=== PATIENT | male | born 1985 | race Caucasian/White ===

== ENCOUNTER 2017-08-13 23:48 | Emergency (ER) | payer OTHER ==
[2017-08-13 23:57] VITALS: TEMP 98.4
[2017-08-14] MEDS ORDERED: NITROGLYCERIN OINT 1 INCH/GM PACKET TOPICAL STA (00:10)
[2017-08-14] MEDS ORDERED: SODIUM CHLORIDE 0.9% 1,000 ML IV STA (00:10)
[2017-08-14] MEDS ORDERED: ASPIRIN 81 MG PO STA (00:10)
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
[2017-08-14 00:41] LABS: Glucose,Whole Blood 89 mg/dL (75-99)
[2017-08-14 00:44] LABS: Basophils # (A) 0.1 k/uL (0-0.2); Basophils % (A) 1 %; Eosinophils # (A) 0.4 k/uL (0-0.7); Eosinophils % (A) 3 %; HCT 42.1 % (39.0-53.0); HGB 15.1 gm/dL (13.0-17.5); Lymphocytes # (A) 3.5 k/uL (1.0-4.8); Lymphocytes % (A) 33 %; MCHC 35.9 g/dL (31.0-37.0); MCV 83.5 fL (80.0-100.0); Mean Platelet Volume 7.5; Monocytes # (A) 0.4 k/uL (0-1.0); Monocytes % (A) 4 %; Neutrophils # (A) 6.1 k/uL (1.3-7.7); Neutrophils % (A) 58 %; Platelet Count 182 k/uL (150-450); RBC 5.04 m/uL (4.30-5.90); RDW 12.5 % (11.5-15.5); WBC 10.5 k/uL (3.8-10.6)
[2017-08-14 00:53] LABS: D-Dimer 0.31 mg/L FEU (<0.60)
[2017-08-14 00:57] LABS: ALT 50 U/L (21-72); AST 32 U/L (17-59); Albumin 4.3 g/dL (3.5-5.0); Alkaline Phosphatase 34 U/L (38-126); Anion Gap 10 mmol/L; Blood Urea Nitrogen 12 mg/dL (9-20); Calcium 9.7 mg/dL (8.4-10.2); Carbon Dioxide 28 mmol/L (22-30); Chloride 104 mmol/L (98-107); Glucose 84 mg/dL (74-99); INR 1.1 (<1.2); Magnesium 1.9 mg/dL (1.6-2.3); Partial Thromboplastin Time 23.6 sec (22.0-30.0); Potassium 3.4 mmol/L (3.5-5.1); Sodium 142 mmol/L (137-145); Total Bilirubin 0.6 mg/dL (0.2-1.3)
--- NOTE | 2017-08-14 00:57 | XR ---
EXAMINATION TYPE: XR chest 2V DATE OF EXAM: 08/14/2017 COMPARISON: 09/25/2009 HISTORY: Chest pain TECHNIQUE: Frontal and lateral views of the chest are obtained. FINDINGS: Heart and mediastinum are normal. Lungs are clear. Diaphragm is normal. Bony thorax appear s normal. There are chest leads. IMPRESSION: Normal chest. No change.
[2017-08-14 01:05] LABS: Creatine Kinase 320 U/L (55-170)
[2017-08-14] MEDS ORDERED: SODIUM CHLORIDE 0.9% 1,000 ML IV ONE (01:15)
[2017-08-14 01:17] VITALS: RESP 16
[2017-08-14 01:17] LABS: Creatine Kinase MB 1.3 ng/mL (0.0-2.4); Troponin I <0.012 ng/mL (0.000-0.034)
--- NOTE | 2017-08-14 01:20 | XR ---
EXAMINATION TYPE: XR lumbar spine with bend/flex DATE OF EXAM: 08/14/2017 COMPARISON: NONE HISTORY: Back pain TECHNIQUE: 5 views FINDINGS: Vertebra have normal spacing and alignment. Posterior elements are intact. Sacroiliac joint s appear normal. IMPRESSION: Normal lumbar spine exam.
[2017-08-14 01:42] VITALS: BP 110/71; PULSE 80
== END 2017-08-14 01:42 | disposition home or self-care (01) ==
LOC: EC 23:48
DX: R07.9 Chest pain, unspecified (principal); R42 Dizziness and giddiness; H66.90 Otitis media, unspecified, unspecified ear; F17.200 Nicotine dependence, unspecified, uncomplicated
CPT/HCPCS: 36415; 71046; 72114; 80053; 82550; 82553; 83735; 84484; 85025; 85379; 85610; 85730; 93005; 96360; 99285

== ENCOUNTER 2019-03-29 08:15 | Emergency (ER) | payer BC ==
[2019-03-29] MEDS ORDERED: MORPHINE SULFATE 4 MG/ML SYRINGE IVP STA (08:30)
[2019-03-29] MEDS ORDERED: SODIUM CHLORIDE 0.9% 1,000 ML IV ONE (08:30)
[2019-03-29] MEDS ORDERED: ONDANSETRON 4 MG/2 ML VIAL IVP STA (08:30)
[2019-03-29] MEDS ORDERED: KETOROLAC 30 MG/ML 1 ML VIAL IVP STA (08:33)
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
[2019-03-29 08:51] LABS: Basophils # (A) 0.1 k/uL (0-0.2); Basophils % (A) 1 %; Eosinophils # (A) 0.3 k/uL (0-0.7); Eosinophils % (A) 2 %; HCT 46.2 % (39.0-53.0); Lymphocytes # (A) 3.1 k/uL (1.0-4.8); Lymphocytes % (A) 28 %; MCH 29.9 pg (25.0-35.0); MCHC 34.7 g/dL (31.0-37.0); MCV 86.1 fL (80.0-100.0); Mean Platelet Volume 6.3; Monocytes # (A) 0.4 k/uL (0-1.0); Monocytes % (A) 3 %; Neutrophils # (A) 6.9 k/uL (1.3-7.7); Neutrophils % (A) 64 %; Platelet Count 195 k/uL (150-450); RBC 5.36 m/uL (4.30-5.90); RDW 12.5 % (11.5-15.5); WBC 10.8 k/uL (3.8-10.6)
[2019-03-29 09:00] LABS: ALT 35 U/L (21-72); AST 25 U/L (17-59); African American GFR (CKD) >90 (>60 ml/min/1.73 sqM); Albumin 4.6 g/dL (3.5-5.0); Alkaline Phosphatase 37 U/L (38-126); Anion Gap 11 mmol/L; Blood Urea Nitrogen 12 mg/dL (9-20); Carbon Dioxide 24 mmol/L (22-30); Chloride 107 mmol/L (98-107); Glucose 105 mg/dL (74-99); Potassium 3.9 mmol/L (3.5-5.1); Sodium 142 mmol/L (137-145); Total Bilirubin 0.8 mg/dL (0.2-1.3); Total Protein 7.8 g/dL (6.3-8.2)
[2019-03-29] MEDS ORDERED: PIPERACILLIN-TAZOBACTAM 3.375 GM in SODIUM CHLORIDE 0.9% 100 ML IVPB STA (09:17)
--- NOTE | 2019-03-29 09:46 | CT ---
EXAMINATION TYPE: CT abdomen pelvis w con DATE OF EXAM: 03/29/2019 COMPARISON: NONE HISTORY: 33-year-old male Right Flank Pain TECHNIQUE: Contiguous axial scanning of the abdomen and pelvis following administration of 100 ml Iso yefri 300 IV contrast. Delayed images were not acquired as the patient threw up. CT DLP: 598.2 mGycm Automated exposure control for dose reduction was used. FINDINGS: Heart normal size without pericardial effusion. Minimal dependent atelectasis. Lung bases otherwise c lear. No focal liver lesion or biliary ductal dilatation. Portal venous system is patent. Gallbladder, adrenal glands, spleen with anterior splenule, and pancreas appear within normal limits. Some mild hypodensity along the upper pole of the lateral right kidney may relate to motion artifact given the appearance on coronal series. There is mild right-sided pelvocaliectasis with a 3 mm calcul us within the distal right ureter, axial image 78. Subcentimeter hypodensity medial left kidney small for accurate CT characterization, likely cyst. No dilated small bowel, free fluid, or free air. No mesenteric or retroperitoneal lymphadenopathy. While the appendix is not discretely visualized, no secondary findings of acute appendicitis are iden tified in the right lower quadrant. Some prominent right lower quadrant mesenteric lymph nodes measuring up to 8 mm. Moderate stool right side of the colon. No pericolonic inflammatory change. Bladder under distended. Prostate gland measures 4.5 cm wide. Pelvic platelets. No abnormal fluid col lection in the pelvis or pelvic lymphadenopathy seen. Bones: No osseous destructive process. IMPRESSION: 1. A 3 MM CALCULUS IN THE DISTAL RIGHT URETER WITH PELVOCALIECTASIS SUGGESTING MILD OBSTRUCTIVE UROPA THY. 2. SUBTLE FOCAL HYPODENSITY IN THE LATERAL UPPER POLE OF THE RIGHT KIDNEY. THE CORONAL SERIES SHOWS M OTION IN THIS REGION. ARTIFACT IS SUSPECTED RATHER THAN A FOCAL AREA OF POLYNEPHRITIS. CLINICALLY COR RELATE. 3. A FEW NONSPECIFIC, BORDERLINE ENLARGED 8 MM RIGHT LOWER QUADRANT MESENTERIC LYMPH NODES LIKELY VICK CTIVE.
--- NOTE | 2019-03-29 10:09 | XR ---
EXAMINATION TYPE: XR KUB DATE OF EXAM: 03/29/2019 COMPARISON: NONE HISTORY: Right lower quadrant pain TECHNIQUE: One view abdominal series FINDINGS: The osseous structures are intact. The bowel gas pattern is nonspecific. Lung bases are clear. Cont rast is seen within the collecting systems with prominent right renal pelvis and ureter. Contrast in the bladder limits assessment for calcifications. IMPRESSION: 1. Nonspecific abdomen. Correlate for right-sided hydronephrosis and hydroureter likely secondary to a UVJ calcification.
[2019-03-29 11:22] LABS: Appearance,Urine Clear (Clear); Bilirubin,Urine Negative (Negative); Blood,Urine Moderate (Negative); Color,Urine Yellow; Glucose,Urine (UA) Negative (Negative); Ketones,Urine Negative (Negative); Leukocyte Esterase,Urine Small (Negative); Nitrite,Urine Negative (Negative); Protein,Urine Trace (Negative); RBC,Urine 116 /hpf (0-5); Squamous Epithelial Cell,Urine <1 /hpf (0-4); Urobilinogen,Urine <2.0 mg/dL (<2.0); WBC,Urine 7 /hpf (0-5)
[2019-03-29 11:28] LABS: Specific Gravity,Urine >1.050 (1.001-1.035)
[2019-03-29 11:55] VITALS: BP 102/60; PULSE 54; RESP 18; TEMP 97.4
== END 2019-03-29 11:55 | disposition home or self-care (01) ==
LOC: EC 08:15
DX: N20.1 Calculus of ureter (principal); N28.89 Other specified disorders of kidney and ureter; F17.200 Nicotine dependence, unspecified, uncomplicated
CPT/HCPCS: 36415; 80053; 83690; 85025; 81001; 74018; 74177; 99284; 96365; 96375 ×3; 96361; J2543; J2270; J2405; J1885; Q9967

== ENCOUNTER 2019-11-06 08:52 | Emergency (ER) | payer BC ==
[2019-11-06 08:59] VITALS: RESP 18; TEMP 98.2
[2019-11-06] MEDS ORDERED: LORazepam 2 MG/ML INJ IV STA (09:30)
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
[2019-11-06 10:09] LABS: ALT 47 U/L (4-49); AST 34 U/L (17-59); African American GFR (CKD) >90 (>60 ml/min/1.73 sqM); Albumin 4.7 g/dL (3.5-5.0); Alkaline Phosphatase 42 U/L (38-126); Anion Gap 10 mmol/L; Basophils % (A) 0 %; Blood Urea Nitrogen 14 mg/dL (9-20); Calcium 10.3 mg/dL (8.4-10.2); Carbon Dioxide 22 mmol/L (22-30); Chloride 109 mmol/L (98-107); Eosinophils # (A) 0.2 k/uL (0-0.7); Eosinophils % (A) 2 %; Glucose 107 mg/dL (74-99); HCT 45.5 % (39.0-53.0); HGB 15.5 gm/dL (13.0-17.5); Lymphocytes # (A) 2.1 k/uL (1.0-4.8); Lymphocytes % (A) 23 %; MCH 29.8 pg (25.0-35.0); MCHC 34.1 g/dL (31.0-37.0); MCV 87.3 fL (80.0-100.0); Magnesium 2.1 mg/dL (1.6-2.3); Mean Platelet Volume 7.8; Monocytes # (A) 0.4 k/uL (0-1.0); Monocytes % (A) 5 %; Neutrophils # (A) 6.3 k/uL (1.3-7.7); Neutrophils % (A) 69 %; Non-African American GFR(CKD) >90 (>60 ml/min/1.73 sqM); Partial Thromboplastin Time 23.3 sec (22.0-30.0); Platelet Count 185 k/uL (150-450); Potassium 3.9 mmol/L (3.5-5.1); Prothrombin Time 10.3 sec (9.0-12.0); RBC 5.21 m/uL (4.30-5.90); RDW 12.6 % (11.5-15.5); Sodium 141 mmol/L (137-145); Total Bilirubin 0.4 mg/dL (0.2-1.3); Total Protein 7.6 g/dL (6.3-8.2); WBC 9.2 k/uL (3.8-10.6)
--- NOTE | 2019-11-06 10:24 | XR ---
EXAMINATION TYPE: XR chest 2V DATE OF EXAM: 11/06/2019 HISTORY: Chest Pain. REFERENCE: Previous study dated 08/14/2017. FINDINGS: Lungs remain clear. Pleural space are clear. Heart size is normal. IMPRESSION: NORMAL CHEST.
[2019-11-06 11:04] VITALS: BP 113/83; PULSE 74
== END 2019-11-06 11:04 | disposition home or self-care (01) ==
LOC: EC 08:52
DX: F41.9 Anxiety disorder, unspecified (principal); F17.200 Nicotine dependence, unspecified, uncomplicated
CPT/HCPCS: 36415; 93005; 80053; 83735; 84484; 85025; 85610; 85730; 71046; 99285; 96374; J2060

== ENCOUNTER 2023-01-13 08:36 | Inpatient (IN) | payer BC ==
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
--- NOTE | 2023-01-13 09:56 | XR ---
EXAMINATION TYPE: XR chest 2V DATE OF EXAM: 01/13/2023 COMPARISON: 11/06/2019 TECHNIQUE: PA and lateral views submitted. HISTORY: Cough FINDINGS: Patchy infiltrate in the right upper lobe. Underlying emphysematous changes. Hypertrophic change of t he AC joint.. Heart size normal and no overt failure. Osseous structures demonstrate hypertrophic an d degenerative changes of the spine. IMPRESSION: 1. Patchy right upper lobe infiltrate correlate for pneumonia. Follow to resolution to exclude underl delphine neoplasm.
[2023-01-13 09:57] LABS: ALT 57 U/L (4-49); AST 32 U/L (17-59); African American GFR (CKD) >90 (>60 ml/min/1.73 sqM); Albumin 4.5 g/dL (3.5-5.0); Alkaline Phosphatase 46 U/L (38-126); Anion Gap 8 mmol/L; Blood Urea Nitrogen 9 mg/dL (9-20); Calcium 9.3 mg/dL (8.4-10.2); Carbon Dioxide 22 mmol/L (22-30); Chloride 106 mmol/L (98-107); Glucose 130 mg/dL (74-99); Non-African American GFR(CKD) >90 (>60 ml/min/1.73 sqM); Potassium 3.8 mmol/L (3.5-5.1); Sodium 136 mmol/L (137-145); Total Bilirubin 1.4 mg/dL (0.2-1.3); Total Protein 7.5 g/dL (6.3-8.2)
[2023-01-13 10:17] LABS: Basophils % (A) 0 %; Eosinophils # (A) 0.1 k/uL (0-0.7); Eosinophils % (A) 1 %; HCT 42.5 % (39.0-53.0); HGB 14.7 gm/dL (13.0-17.5); Lymphocytes # (A) 2.1 k/uL (1.0-4.8); Lymphocytes % (A) 14 %; MCH 29.8 pg (25.0-35.0); MCHC 34.6 g/dL (31.0-37.0); MCV 86.2 fL (80.0-100.0); Mean Platelet Volume 8.6; Monocytes # (A) 0.9 k/uL (0-1.0); Monocytes % (A) 6 %; Neutrophils # (A) 12.2 k/uL (1.3-7.7); Neutrophils % (A) 79 %; Platelet Count 200 k/uL (150-450); RBC 4.93 m/uL (4.30-5.90); RDW 12.6 % (11.5-15.5); WBC 15.4 k/uL (3.8-10.6)
[2023-01-13 10:23] LABS: INR 1.1 (<1.2); Partial Thromboplastin Time 24.4 sec (22.0-30.0); Prothrombin Time 11.2 sec (9.0-12.0)
[2023-01-13] MEDS ORDERED: KETOROLAC 15 MG/ML 1 ML VIAL IM STA (10:32)
[2023-01-13] MEDS ORDERED: LIDOCAINE 5% PATCH TOPICAL ONE (10:32)
[2023-01-13] MEDS ORDERED: IPRATROPIUM-ALBUTEROL 3 ML NEB INHALATION STA (10:32)
--- NOTE | 2023-01-13 11:58 | CT ---
EXAMINATION TYPE: CT chest angio for PE CT DLP: 511.5 mGycm, Automated exposure control for dose reduction was used. DATE OF EXAM: 01/13/2023 11:15 AM COMPARISON: Chest radiograph from same day. CLINICAL INDICATION:Male, 37 years old with history of Chest pain, hemoptysis, elevated d-dimer; Ches t pain, hemoptysis and elevated d-dimer. TECHNIQUE/CONTRAST: CTA scan of the thorax is performed with IV Contrast, patient injected with 80ml mL of Isovue 370, DC P images are created and reviewed these are created on a separate workstation.. FINDINGS: Pulmonary Artery: Limited evaluation secondary to phase of contrast. There are filling defects identi fied within the right upper and right lower lobe pulmonary arterial vasculature compatible with pulmo nary embolus. Possible filling defects within the left lower lobe also present. No evidence of right heart strain. Lungs/Pleura: Airspace opacities within the right upper lung similar along the posterior aspect. No e vidence of focal consolidation, pleural effusion or pneumothorax. Airway: Large airways are patent. Heart: Heart is within normal limits for size. Vasculature: No evidence of aortic aneurysm. Mediastinum: No gross evidence of adenopathy. Musculoskeletal: No acute osseous abnormalities Soft Tissues: Unremarkable. Lower neck: No significant findings. Upper Abdomen: No significant findings. IMPRESSION: 1. Right lower and upper lobe pulmonary emboli. Exam is limited given phase of contrast. 2. Suspected right upper lobe pulmonary infarct as limited upper lung emboli) region. Findings communicated to provided team on 01/13/2023 11:[address] Blu Monreal.
[2023-01-13] MEDS ORDERED: HEPARIN SODIUM 1,000 UN/ML (10ML VL) IV PRN (12:01)
[2023-01-13] MEDS ORDERED: HEPARIN SODIUM 1,000 UN/ML (10ML VL) IV ONE (12:01)
[2023-01-13] MEDS ORDERED: ACETAMINOPHEN TAB 325 MG TAB PO PRN (12:07)
[2023-01-13] MEDS ORDERED: MORPHINE SULFATE 4 MG/ML SYRINGE IV PRN (12:07)
[2023-01-13] MEDS ORDERED: NALOXONE 0.4 MG/ML 1 ML VIAL IV PRN (12:07)
[2023-01-13] MEDS ORDERED: ONDANSETRON 4 MG/2 ML VIAL IVP PRN (12:07)
[2023-01-13] MEDS: HEPARIN SOD,PORK IN 0.45% NACL 25,000 UNIT in 0.45% NACL 1 250ML.BAG IV SCH ×2 (12:52→23:38)
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
--- NOTE | 2023-01-13 16:08 | US ---
EXAMINATION TYPE: US venous doppler duplex LE BI DATE OF EXAM: 01/13/2023 4:02 PM COMPARISON: NONE CLINICAL INDICATION: Male, 37 years old with history of PE; PE SIDE PERFORMED: Bilateral TECHNIQUE: The lower extremity deep venous system is examined utilizing real time linear array sonog padmini with graded compression, doppler sonography and color-flow sonography. VESSELS IMAGED: Common Femoral Vein Deep Femoral Vein Greater Saphenous Vein * Femoral Vein Popliteal Vein Small Saphenous Vein * Proximal Calf Veins (* superficial vessels) Grayscale, color doppler, spectral doppler imaging performed of the deep veins of the lower extremiti es. There is normal flow, compressibility, vascular waveforms. Right Leg: Appears negative for DVT Left Leg: Appears negative for DVT IMPRESSION: No deep venous thrombosis of the bilateral lower extremities.
[2023-01-13] MEDS: HYDROcodone/APAP 5-325MG 1 EACH TAB PO PRN (20:26)
[2023-01-13] MEDS: HYDROmorphone 0.5 MG/0.5 ML SYRINGE IVP PRN (21:42)
[2023-01-14 03:38] LABS: Basophils % (A) 0 %; Eosinophils # (A) 0.1 k/uL (0-0.7); Eosinophils % (A) 1 %; HCT 39.3 % (39.0-53.0); HGB 13.4 gm/dL (13.0-17.5); Lymphocytes % (A) 17 %; MCH 29.7 pg (25.0-35.0); MCV 87.3 fL (80.0-100.0); Mean Platelet Volume 7.7; Monocytes # (A) 0.8 k/uL (0-1.0); Monocytes % (A) 6 %; Neutrophils # (A) 8.7 k/uL (1.3-7.7); Neutrophils % (A) 74 %; Platelet Count 183 k/uL (150-450); RBC 4.51 m/uL (4.30-5.90); RDW 12.4 % (11.5-15.5); WBC 11.8 k/uL (3.8-10.6)
[2023-01-14] MEDS: HYDROmorphone 0.5 MG/0.5 ML SYRINGE IVP PRN ×4 (04:38→20:00)
[2023-01-14] MEDS: APIXABAN 5 MG TAB PO SCH ×2 (09:30→20:00)
[2023-01-14] MEDS: HYDROcodone/APAP 5-325MG 1 EACH TAB PO PRN ×2 (09:30→17:28)
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
--- NOTE | 2023-01-14 11:43 | P.PN ---
Subjective Progress Note Date: 01/14/23 Principal diagnosis: Pulmonary embolism A shunt seen and examined today as a follow-up. Apparently yesterday evening patient started having severe right-sided chest pain again. It was recommended that patient continue an inpatient stay. Patient reportedly has been coughing/spitting up blood throughout the night. States it was bright red but now dark. Small amounts each time. He currently denies any shortness of breath at this time. Oxygen saturation has been 94-96% on room air. WBC 11.8 hemoglobin 13.4 platelet count 183,000 Objective - Vital Signs Vital signs: Vital Signs Temp 98.3 F 01/13/23 23:37 Pulse 85 01/14/23 04:00 Resp 18 01/14/23 04:00 BP 113/69 01/14/23 04:00 Pulse Ox 94 L 01/14/23 04:00 FiO2 Intake & Output 01/13/23 01/14/23 01/14/23 18:59 06:59 18:59 Intake Total 195.754 Balance 195.754 Weight 110.223 kg 110.223 kg Intake: Intake, IV Titration 195.754 Amount Heparin Sod,Pork in 0.45% 195.754 NaCl 25,000 unit In 0.45 % NaCl 1 250ml.bag @ 18 UNITS/KG/HR 19.84 mls/hr IV .[id number] [facility] Rx#: [id number] Other: # Voids 2 - Exam General appearance: The patient is alert, oriented, appears in no acute distress. HET: Head is normocephalic and atraumatic. Pupils are equal and reactive. Neck: Supple. Heart: Regular. Lungs: Equal expansion, normal respiratory effort. Abdomen: Soft, nontender, nondistended. Extremities: Normal skin color and turgor. Neurological: No focal deficits. Strength and sensation are grossly intact. - Labs CBC & Chem 7: 01/14/23 03:29 01/13/23 09:01 Labs: Abnormal Lab Results - Last 24 Hours (Table) 01/13/23 01/13/23 01/13/23 Range/Units 09:01 09:01 09:01 WBC 15.4 H (3.8-10.6) k/uL Neutrophils # 12.2 H (1.3-7.7) k/uL APTT (22.0-30.0) sec D-Dimer 1.28 H (<0.60) mg/L FEU Sodium 136 L (137-145) mmol/L Glucose 130 H (74-99) mg/dL Plasma Lactic Acid Joseph (0.7-2.0) mmol/L Total Bilirubin 1.4 H (0.2-1.3) mg/dL ALT 57 H (4-49) U/L 01/13/23 01/13/23 01/13/23 Range/Units 09:01 18:38 20:43 WBC (3.8-10.6) k/uL Neutrophils # (1.3-7.7) k/uL APTT 58.1 H 41.2 H (22.0-30.0) sec D-Dimer (<0.60) mg/L FEU Sodium (137-145) mmol/L Glucose (74-99) mg/dL Plasma Lactic Acid Joseph 0.6 L (0.7-2.0) mmol/L Total Bilirubin (0.2-1.3) mg/dL ALT (4-49) U/L 01/14/23 01/14/23 01/14/23 Range/Units 03:29 03:29 07:32 WBC 11.8 H (3.8-10.6) k/uL Neutrophils # 8.7 H (1.3-7.7) k/uL APTT 42.8 H 40.9 H (22.0-30.0) sec D-Dimer (<0.60) mg/L FEU Sodium (137-145) mmol/L Glucose (74-99) mg/dL Plasma Lactic Acid Joseph (0.7-2.0) mmol/L Total Bilirubin (0.2-1.3) mg/dL ALT (4-49) U/L Assessment and Plan Assessment: 1. Pulmonary emboli/ infarct 2. Hemoptysis 3. Chronic ongoing tobacco dependence Plan: 1. Await recommendations from pulmonology on transitioning to oral anticoagulation 2. Recommend smoking cessation 3. Consider outpatient hematology workup 4. Patient has planned travel to [place] and leaves on Thursday, patient advised it is not recommended at this time 5. There is no indication for any vascular surgical intervention 6. Continue pain medication as needed 7. Patient will need outpatient follow-up in 1-2 weeks. Thank you for this consultation. Probable discharge in the next 24-48 hours. The impression and plan of care has been dictated as directed. Dr. Richardson I performed a history and examination of this patient, discussed the same with the dictator. I agree with the dictator's note ,documented as a scribe. Any additional findings or plans will be noted.
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
[2023-01-15] MEDS: HYDROcodone/APAP 5-325MG 1 EACH TAB PO PRN ×2 (06:14→12:51)
[2023-01-15] MEDS: APIXABAN 5 MG TAB PO SCH (07:53)
[2023-01-15 10:07] VITALS: RESP 18; TEMP 98.6
--- NOTE | 2023-01-15 11:03 | P.PN ---
Subjective Progress Note Date: 01/15/23 Principal diagnosis: Pulmonary embolism Patient seen and examined today as a follow-up for right upper lobe pulmonary emboli and infarct. Patient continues to have hemoptysis. He states he still has pain with deep breaths or when he has to spit however states pain is well controlled with pain medication. Temperature 98.6 heart rate 86 respiratory rate 18 blood pressure 133/80 oxygen saturation 95% on room air. Patient was transitioned yesterday to Eliquis 10 mg twice a day Objective - Vital Signs Vital signs: Vital Signs Temp 99 F 01/14/23 23:24 Pulse 88 01/15/23 03:50 Resp 16 01/15/23 03:50 BP 111/78 01/15/23 03:50 Pulse Ox 95 01/15/23 03:50 FiO2 Intake & Output 01/14/23 01/15/23 01/15/23 18:59 06:59 18:59 Intake Total 540 Balance 540 Intake: Oral 540 Other: # Voids 2 - Exam General appearance: The patient is alert, oriented, appears in no acute distress. HET: Head is normocephalic and atraumatic. Neck: Supple. Heart: Regular. Lungs: Equal expansion, normal respiratory effort. Abdomen: Soft, nontender, nondistended. Extremities: Normal skin color and turgor. Neurological: No focal deficits. - Labs CBC & Chem 7: 01/14/23 03:29 01/13/23 09:01 Assessment and Plan Assessment: 1. Pulmonary emboli/ infarct 2. Hemoptysis 3. Chronic ongoing tobacco dependence Plan: 1. Continue with recommendations from pulmonology 2. Recommend smoking cessation 3. Consider outpatient hematology workup 4. Patient has planned travel to [place] and leaves on Thursday, patient advis ed it is not recommended at this time 5. There is no indication for any vascular surgical intervention 6. Continue pain medication as needed 7. Patient will need outpatient follow-up in 1-2 weeks. Thank you for this consultation. Patient is cleared for discharge from vascular surgery. We will sign off at this time. The impression and plan of care has been dictated as directed. Dr. Richardson I performed a history and examination of this patient, discussed the same with the dictator. I agree with the dictator's note ,documented as a scribe. Any additional findings or plans will be noted.
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
[2023-01-15 12:38] VITALS: BP 142/82; PULSE 92
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
== END 2023-01-15 14:19 | disposition home or self-care (01) | DRG 176 ==
LOC: EC 08:36 → 3SCARD 12:19
PROVIDERS: ADMIT Internal Medicine; ATTEND Internal Medicine
DX: I26.99 Other pulmonary embolism without acute cor pulmonale (principal); R04.2 Hemoptysis; F17.210 Nicotine dependence, cigarettes, uncomplicated; F41.9 Anxiety disorder, unspecified; F32.A Depression, unspecified; H66.91 Otitis media, unspecified, right ear; Z20.822 Contact with and (suspected) exposure to COVID-19; Z28.310 Unvaccinated for COVID-19
CPT/HCPCS: 36415; 71046; 71275; 80053; 83605; 84484; 85025; 85379; 85610; 85730; 87636; 93005; 93970; 94640; 96365; 96366; 96375; 99285; 99406

== ENCOUNTER → 2023-04-20 | Outpatient (CLI) | payer BC ==
--- NOTE | 2023-04-20 21:31 | CT ---
CT CHEST FOR PULMONARY EMBOLISM. EXAMINATION TYPE: CT angio chest DATE OF EXAM: 04/20/2023 INDICATION: Patient statest that he had a PE x 6 weeks ago, last prior 01/21 CT DLP: 465.1 mGycm, Automated exposure control for dose reduction was used. CONTRAST: Patient injected with 80 cc mL of Isovue 370. COMPARISON: 01/13/2023 TECHNIQUE: CT of the chest is performed on a spiral scan at 2 mm thick sections. Study is performed with intravenous contrast timed for evaluation for pulmonary embolism. This will limit additional po rtions of the evaluation. 3-D MIP images reconstructed by the technologist are reviewed on the compu ter in the coronal and sagittal planes. FINDINGS: No persistent filling defects are evident to suggest an acute pulmonary embolism. Previous pulmonary emboli are not identified. No mediastinal or hilar adenopathy enlarged by CT criteria is evident. Shotty lymphadenopathy is pre sent. The ascending aorta diameter at the level of the main pulmonary artery is 8.4 cm. The main pul monary artery diameter at the bifurcation is 2.7 cm. There is a 2.1 x 0.9 cm spiculated density posterior right lung. Some adjacent pleural thickening wit h stranding may be present. Series 5 image 58. Atelectasis or pneumonia could be considered. This are a appears to be resolving from the comparison study. Continued follow-up recommended. Limited CT section through the upper abdomen are unremarkable. IMPRESSION: 1. Posterior right upper lung field. Residual increased density remains. Correlate for atelectasis or pneumonia. Continued follow-up is recommended.
== END | disposition home or self-care (01) ==
LOC: RADCTMAIN 15:50
PROVIDERS: ATTEND Internal Medicine Critical Care Medicine
DX: I26.90 Septic pulmonary embolism without acute cor pulmonale (principal); J98.4 Other disorders of lung
CPT/HCPCS: 71275; Q9967

== ENCOUNTER → 2023-07-14 | Outpatient (CLI) | payer BC ==
--- NOTE | 2023-07-14 16:08 | CT ---
CTA CHEST EXAMINATION TYPE: CT angio chest DATE OF EXAM: 07/14/2023 INDICATION: F/U PE CT DLP: 448.20 mGycm, Automated exposure control for dose reduction was used. CONTRAST: Patient injected with 100 mL of Isovue 370. COMPARISON: 04/20/2023 TECHNIQUE: CT of the chest is performed on a spiral scan at 2 mm thick sections. Study is performed with intravenous contrast timed for evaluation for pulmonary embolism. This will limit additional po rtions of the evaluation. 3-D MIP images reconstructed by the technologist are reviewed on the compu ter in the coronal and sagittal planes. FINDINGS: No persistent filling defects are evident to suggest an acute pulmonary embolism. No mediastinal or hilar adenopathy enlarged by CT criteria is evident. The ascending aorta diameter at the level of the main pulmonary artery is 3.6 cm. The main pulmonary artery diameter at the bifurcation is 2.5 cm. May be some minimal infiltrate in the posterior lateral right upper lung field. This is somewhat impr beena from the comparison Limited CT sections were through the upper abdomen. Upper abdomen appears unremarkable. IMPRESSION: 1. No acute pulmonary embolism. 2. Minimal infiltrate in the periphery posterior lateral right upper lung field most likely on the ba sis of atelectasis. Follow-up can be performed as clinically indicated
== END | disposition home or self-care (01) ==
LOC: RADCTMAIN 14:50
PROVIDERS: ATTEND Internal Medicine Critical Care Medicine
DX: I26.99 Other pulmonary embolism without acute cor pulmonale (principal); R07.89 Other chest pain
CPT/HCPCS: 71275; Q9967

== ENCOUNTER → 2023-09-04 | Outpatient (CLI) | payer BC ==
--- NOTE | 2023-09-04 18:51 | CT ---
EXAMINATION TYPE: CT abdomen pelvis w con DATE OF EXAM: 09/04/2023 COMPARISON: 03/29/2019 INDICATION: RLQ pain DLP: 1340.9 mGycm, Automated exposure control for dose reduction was used. CONTRAST: 100 mL of Isovue 300. Study performed without Oral Contrast TECHNIQUE: Axial images were obtained from above the diaphragm to the pubic rami in the axial plane a t 5 mm thick sections. Reconstructed images are reviewed on the computer in the coronal plane. FINDINGS: Limited CT sections are obtained the lung bases. The lung bases are clear. CT ABDOMEN: Liver: Mild fatty infiltration within the liver. No discrete masses are evident. Spleen: Normal Pancreas: Normal Adrenal glands: The adrenal glands are normal. Gallbladder: Normal Kidneys: No masses are evident. No hydronephrosis is present. No cysts are present. Delayed images were obtained through the kidneys, which remain unremarkable. Aorta: Normal Inferior vena cava: Normal. CT PELVIS: Loops of bowel within the abdomen and pelvis are normal. There are loops of bowel which are incom pletely distended or lack oral contrast limiting their evaluation. Appendix: Normal as visualized. Urinary bladder: Normal. Genitourinary structures: Prostate is mildly prominent. Osseous structures: No suspicious lytic or sclerotic lesions. IMPRESSION: 1. Appendix appears unremarkable. 2. Mild fatty infiltration of liver.
== END | disposition home or self-care (01) ==
LOC: RADCTMAIN 12:21
PROVIDERS: ATTEND Internal Medicine
DX: K76.0 Fatty (change of) liver, not elsewhere classified (principal)
CPT/HCPCS: 74177; Q9967

== ENCOUNTER → 2024-06-20 | Outpatient (CLI) | payer BC ==
--- NOTE | 2024-06-20 15:23 | XR ---
EXAMINATION TYPE: XR shoulder complete RT DATE OF EXAM: 06/20/2024 COMPARISON: NONE CLINICAL INDICATION: Male, 39 years old with history of J44.9 CHRONIC OBSTRUCTIVE PULMONARY DISEASE, UNSPE; TECHNIQUE: Three views are submitted. FINDINGS: The osseous structures are intact. There is no acute fracture or dislocation. Mild to moderate hyper trophic arthropathy AC joint. IMPRESSION: 1. Hypertrophic AC joint arthropathy correlate for impingement of the rotator cuff. [facility], , 06/20/2024 3:21 PM
== END | disposition home or self-care (01) ==
LOC: RADXRMAIN 15:06
PROVIDERS: ATTEND Internal Medicine
DX: J44.9 Chronic obstructive pulmonary disease, unspecified (principal); M19.011 Primary osteoarthritis, right shoulder

== ENCOUNTER → 2024-09-21 | Outpatient (CLI) | payer BC ==
--- NOTE | 2024-09-21 09:46 | XR ---
EXAMINATION TYPE: XR abdomen 2V DATE OF EXAM: 09/21/2024 9:01 AM COMPARISON: 03/29/2019 CLINICAL INDICATION: Male, 39 years old with history of R10.31 RIGHT LOWER QUADRANT PAIN, right upper quadrant pain for past year TECHNIQUE: XR abdomen 2V view(s) obtained. FINDINGS: There is a normal bowel gas pattern. Psoas margins are normal. No organomegaly is present. No suspicious calcifications evident. IMPRESSION: 1. Unremarkable Abdomen [facility], Workstation: [facility], 09/21/2024 9:44 AM
== END | disposition home or self-care (01) ==
LOC: RADXRMAIN 08:47
PROVIDERS: ATTEND Internal Medicine
DX: R10.31 Right lower quadrant pain (principal)
CPT/HCPCS: 74019

== ENCOUNTER → 2024-09-28 | Outpatient (CLI) | payer BC ==
--- NOTE | 2024-09-28 10:39 | XR ---
EXAMINATION TYPE: XR lumbar spine 2 or 3V DATE OF EXAM: 09/28/2024 10:18 AM COMPARISON: None. 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 The lumbar spine shows satisfactory alignment without evidence of acute fracture or dislocation. Vertebral body heights are within normal limits. Disc spaces are well preserved. The overlying soft tissue appears unremarkable. IMPRESSION: No acute fracture or dislocation is seen in the lumbar spine.ICD 10 NO FRACTURE, INITIAL EVALUATION [facility], , 09/28/2024 10:37 AM
== END | disposition home or self-care (01) ==
LOC: RADXRMAIN 10:01
PROVIDERS: ATTEND Internal Medicine
DX: M47.816 Spondylosis without myelopathy or radiculopathy, lumbar region (principal)
CPT/HCPCS: 72100

== ENCOUNTER → 2024-10-13 | Outpatient (CLI) | payer BC ==
--- NOTE | 2024-10-13 14:51 | CT ---
CT urogram. HISTORY: Right flank pain. COMPARISON: 09/04/2023. TECHNIQUE: Multiple axial images are obtained through the abdomen and pelvis before and after the une ventful administration of nonionic IV contrast. Postcontrast delayed images were also obtained. FINDINGS: Lung bases are clear. On the pre-IV contrast images, there are no renal calcifications or ureteral calcifications. There a re no gallstones. The gallbladder is normal and there is no distention or biliary ductal dilatation. There are no focal masses within the liver, pancreas, spleen or adrenal glands and there is no organo megaly. Kidneys excrete contrast promptly and symmetrically and there is no solid renal mass, hydronephrosis or filling defect within the renal collecting systems, ureters or urinary bladder. The bowel loops are normal in caliber and there is no dilatation or obstruction. No inflammatory bonner ges are identified in the bowel wall or mesentery. There is no free intraperitoneal air or fluid. There is no pelvic mass, free fluid, abscess or adenopathy. The osseous structures are intact. IMPRESSION: No significant abnormality seen.. [facility], , 10/13/2024 2:49 PM
== END | disposition home or self-care (01) ==
LOC: RADCTMAIN 12:43
PROVIDERS: ATTEND Internal Medicine
DX: R10.31 Right lower quadrant pain (principal)
CPT/HCPCS: 74178; 74400; Q9967

== ENCOUNTER 2024-11-30 06:46 | Day surgery (SDC) | payer BC ==
[2024-11-30] MEDS: IV FLUID CONTINUATION 1,000 ML IV ONE (07:00)
[2024-11-30 07:18] VITALS: TEMP 97.7
[2024-11-30] MEDS: LACTATED RINGERS 1,000 ML IV SCH (07:21)
[2024-11-30] MEDS ORDERED: LIDOCAINE 2% (PF) 20 MG/ML 5 ML VIAL ONE (07:54)
[2024-11-30] MEDS ORDERED: fentaNYL (PF) 50 MCG/ML 2 ML AMP ONE (07:54)
[2024-11-30] MEDS ORDERED: PROPOFOL 10 MG/ML 20 ML VIAL IV ONE (07:54)
--- NOTE | 2024-11-30 08:13 | P.PCN ---
Date of Procedure: 11/30/24 Procedure(s) Performed: Brief history: Patient is a pleasant 39-year-old white male scheduled for an elective upper endoscopy as well as colonoscopy as a part of evaluation of GERD and right-sided abdominal pain for the last 2 years duration. Pain is mostly in the right upper quadrant area rating to the right lower quadrant area but no significant nausea vomiting or change in bowel habits. No recent weight loss. Procedure performed: Esophagogastroduodenoscopy with biopsy Colonoscopy with snare polypectomy Preoperative diagnosis: GERD Right-sided abdominal pain Anesthesia: MAC Procedure: After informed consent was obtained from the patient was brought into the endoscopy unit and IV sedation was administered by anesthesia under continuous monitoring. Initially upper endoscopy was done. The Olympus GF 160 video endoscope was inserted inserted into the mouth and esophagus intubated without any difficulty and was gradually advanced into the stomach and duodenum and carefully examined. The bulb and second part of the duodenum appeared normal. Biopsies were done from this area to rule out celiac disease. The scope was then withdrawn into the stomach adequately insufflated with air and upon careful examination the antrum and mild gastritis and biopsies were done from this area. Mucosa body, cardia and fundus appeared normal. The scope was then withdrawn into the esophagus. The GE junction was located at 40 cm to the incisors. It appeared regular with no erythema erosions or ulcerations. Rest of the esophagus appeared normal. Patient tolerated the procedure well. At this time the patient continued to remain sedation. Initial digital rectal examination was normal. Olympus CF 160 video colonoscope was then inserted into the rectum and gradually advanced to the cecum without any difficulty. Careful examination was performed as the scope was gradually being withdrawn. The prep was excellent. The cecum had a 5 mm polyp that was removed by cold snare polypectomy. Rest of the, ascending colon, transverse colon. The descending colon there was a 5 mm sessile polyp removed by cold snare polypectomy. Rest of the, descending colon, sigmoid colon and rectum appeared normal. Retroflexion was performed in the rectum and no lesions were noted. Patient tolerated the procedure well. Impression: 1. Upper endoscopy revealed mild antral gastritis but no evidence of esophagitis or peptic ulcer disease 2. Colonoscopy revealed: 5 mm cecal polyp status post cold snare polypectomy 5 mm sessile descending colon polyp status post cold snare polypectomy. Recommendations: Findings of this examination were discussed with the patient as well as his family. He was advised to follow-up the biopsy results. If the biopsy reveals adenoma, recommended repeat colonoscopy in 5 years.
[2024-11-30 08:32] VITALS: BP 120/90; PULSE 64; RESP 16
== END 2024-11-30 08:48 | disposition home or self-care (01) ==
LOC: ORWHC2ENDO 06:46
PROVIDERS: ATTEND Internal Medicine Gastroenterology
DX: D12.4 Benign neoplasm of descending colon (principal); D12.0 Benign neoplasm of cecum; D72.820 Lymphocytosis (symptomatic); K21.9 Gastro-esophageal reflux disease without esophagitis; K31.9 Disease of stomach and duodenum, unspecified; E78.5 Hyperlipidemia, unspecified; J44.9 Chronic obstructive pulmonary disease, unspecified; F32.A Depression, unspecified; F41.9 Anxiety disorder, unspecified; F17.210 Nicotine dependence, cigarettes, uncomplicated; Z86.711 Personal history of pulmonary embolism; Z79.899 Other long term (current) drug therapy
CPT/HCPCS: 88305; 45385; 43239; J3010; J2704; J2003